=== PATIENT | female | born 1945 | race Hispanic/Latino ===

== ENCOUNTER 2019-02-13 06:49 | Day surgery (SDC) | payer MEDICARE, MEDICAID ==
[~2019-02-13] VITALS: Ht 149.9 cm; Wt 69.8 kg
[~2019-02-13 06:49] MED LIST: AMOXICILLIN/CL875 MG PO; CAPTOPRIL25 MG PO; CIPRO500 MG OR; DOXYCYCL HYC100 MG PO; LORTAB 7.5 OR; MAGNESIUM PO; MEDDOSEPAK PO; NO HOME MEDS; PRILOSEC OTC20 MG OR
[2019-02-13] MEDS ORDERED: PERCOCET 5/325M1 TAB PO (09:53)
[2019-02-13 10:42] VITALS: BP 130/60
== END 2019-02-13 11:23 | disposition home or self-care (01) ==
LOC: ORM 06:49
PROVIDERS: ATTEND Surgery
PROC: 0YU64JZ Supplement Left Inguinal Region with Synthetic Substitute, Percutaneous Endoscopic Approach (ICD-10-PCS; principal; 2019-02-13)
PROC: 0WUF4JZ Supplement Abdominal Wall with Synthetic Substitute, Percutaneous Endoscopic Approach (ICD-10-PCS; 2019-02-13)
DX: K40.31 Unilateral inguinal hernia, with obstruction, without gangrene, recurrent (principal); K43.2 Incisional hernia without obstruction or gangrene
CPT/HCPCS: C1781; J0131; J1100; J2710

== ENCOUNTER 2020-08-09 | Emergency (ER) | payer MEDICARE, MEDICAID ==
[~2020-08-09] MED LIST changes: +PERCOCET 5/325M1 TAB PO
[2020-08-09 15:05] LABS: GFR > 60 ML/MIN (>=60 (CALC)); GFR FOR AFR.AMER. > 60 ML/MIN (>=60 (CALC))
[2020-08-09 15:08] LABS: HEMATOCRIT 41.9 % (37.0-47.0); HEMOGLOBIN 13.5 g/dl (12.0-16.0); IMMATURE GRANULOCYTES 0.6 % (0.0-5.0); MEAN CELL VOLUME 88.8 fL CALC (80.0-100.0); MEAN CORPUSCULAR HGB 28.6 pG CALC (26.0-32.0); MEAN CORPUSCULAR HGB CONC 32.2 g/dL CAL (32.0-36.0); NEUT# 6.67 thou/uL (2.00-7.15); RED BLOOD COUNT 4.72 mill/uL (4.20-5.60); RED CELL DISTRI WIDTH 12.8 % (11.5-15.5)
[2020-08-09 15:32] LABS: ALKALINE PHOSPHATASE 86 u/l (38-126); ANION GAP 11 (6-22 (CALC)); BILIRUBIN, TOTAL 0.5 mg/dL (0.0-1.4); BUN 20 mg/dL (8-23); BUN/CREATININE RATIO 25 (12-20 (CALC)); CARBON DIOXIDE 28 mmol/l (22-30); CHLORIDE 100 mmol/l (95-108); CREATININE 0.8 mg/dL (0.5-1.0); GFR > 60 ML/MIN (>=60 (CALC)); GFR FOR AFR.AMER. > 60 ML/MIN (>=60 (CALC)); LIPASE 145 u/l (23-300); POTASSIUM 4.2 mmol/l (3.5-5.1); SGOT/AST 20 u/l (9-36); SODIUM 135 mmol/l (137-146); TOTAL PROTEIN 7.2 g/dL (6.3-8.2)
[2020-08-09 15:42] LABS: URINE BILIRUBIN - DIPSTICK NEGATIVE (NEGATIVE); URINE BLOOD DIPSTICK SMALL (NEGATIVE); URINE COLOR YELLOW; URINE GLUCOSE - DIPSTICK 100 mg/dL (NEGATIVE); URINE KETONE NEGATIVE (NEGATIVE); URINE LEUK ESTERASE LARGE (NEGATIVE); URINE NITRITE - DIPSTICK POSITIVE (Negative); URINE PH 5.5 (4.5-8.0); URINE PROTEIN - DIPSTICK 100 mg/dL (NEG-TRACE); URINE SPECIFIC GRAVITY 1.015
[2020-08-09 15:43] LABS: URINE BACTERIA MANY hpf; URINE TRANSITIONAL EPI. CELLS FEW hpf; URINE WBC >100 WBC/hpf (0-5)
[2020-08-09] MEDS ORDERED: CEPHALEXIN500 M1 PO (16:49)
== END 2020-08-09 17:14 | disposition home or self-care (01) ==
PROVIDERS: Family Medicine
DX: N39.0 Urinary tract infection, site not specified (principal); B96.1 Klebsiella pneumoniae [K. pneumoniae] as the cause of diseases classified elsewhere
CPT/HCPCS: Q9967